=== PATIENT | male | born 1975 ===

== ENCOUNTER 2017-08-29 07:47 | Emergency (ER) | payer OTHER, BC ==
[~2017-08-29] VITALS: Ht 167.6 cm; Wt 74.8 kg
== END 2017-08-29 09:20 | disposition home or self-care (01) ==
LOC: ER 07:47
DX: S00.83XA Contusion of other part of head, initial encounter (principal); W22.8XXA Striking against or struck by other objects, initial encounter; Z88.8 Allergy status to other drugs, medicaments and biological substances; Z87.891 Personal history of nicotine dependence
CPT/HCPCS: 96372; 99283; J1885